=== PATIENT | male | born 1990 | race Caucasian/White ===

== ENCOUNTER 2025-02-11 09:48 | Emergency (ER) | payer SELFPAY ==
--- NOTE | ~2025-02-11 | XR_ITS ---
EXAMINATION: XR chest 2V DATE: 02/11/2025 10:58 INDICATION: 5 days of cough and fever TECHNIQUE: PA and lateral views of the chest were obtained. COMPARISON: None FINDINGS: The lungs are clear with no focal airspace opacities, pulmonary edema, pleural effusion or pneumothor ax. The cardiomediastinal silhouette is normal. Mild midthoracic spondylosis. IMPRESSION: 1. No acute cardiopulmonary disease. Reviewed, dictated and finalized at location A.
[2025-02-11 10:04] VITALS: BP 135/87; PULSE 95; RESP 17; TEMP 37.6; O2SAT 100
[2025-02-11 10:09] VITALS: O2SAT 100
[2025-02-11 10:11] VITALS: BP 135/87; PULSE 94; RESP 13; TEMP 37.6; O2SAT 100
[2025-02-11] MEDS: ACETAMINOPHEN 500 MG TABLET 1000 MG PO (10:28)
[2025-02-11 11:14] VITALS: BP 111/57; PULSE 88; RESP 16; O2SAT 98
[2025-02-11 11:17] LABS: Influenza A QL RT-PCR Negative (Negative); Influenza B QL RT-PCR Negative (Negative); RSV RNA, RT-PCR Negative (Negative); SARS-CoV-2 RNA PCR Negative (Negative)
--- NOTE | 2025-02-11 11:21 | ED_ITS ---
HPI - URI/Sore Throat General Chief Complaint: Upper Respiratory Infection Stated Complaint: cough and chills for 5 days Time Seen by Provider: 02/11/25 10:21 Source: patient Mode of arrival: ambulatory Limitations: no limitations History of Present Illness HPI Narrative: This is a 34-year-old male that presents to the emergency department for viral symptoms ongoing over the last 4 days. Reports chills, cough, diarrhea. Denies fever, abdominal pain, vomiting. Related Data Allergies Allergy/AdvReac Type Severity Reaction Status Date / Time No Known Allergies Allergy Verified 02/11/25 10:12 Review of Systems Review of Systems: All systems reviewed & are unremarkable except as noted in HPI and below PMFSH Past Medical History Medical History (Updated 02/11/25 @ 11:26 by Dianne Deal PA-C) No active medical problems Exam Narrative: GENERAL: Well-appearing, well-nourished, and in no acute distress. HEAD: Normocephalic, atraumatic. EYES: EOMI. ENT: Nares clear, no rhinorrhea or epistaxis. Mucous membranes moist. Oropharynx without tonsillar hypertrophy exudate or other lesions. Bilateral TMs pearly guerrero non-bulging NECK: Supple. No adenopathy or masses. CHEST: Clear to auscultation. No respiratory distress. No wheezes rales or rhonchi HEART: Regular rate and rhythm. No murmur heard. Normal peripheral pulses. ABDOMEN: Soft, nontender, nondistended, normal active bowel sounds. EXTREMITIES: Normal range of motion. No edema. SKIN: Warm, dry, no rash. NEURO: No focal deficits. Alert and oriented x3. PSYCH: Normal mood and affect Course Vital Signs Vital signs: Vital Signs Temperature 99.7 F H 02/11/25 10:04 Pulse Rate 95 02/11/25 10:04 Respiratory Rate 17 02/11/25 10:04 Blood Pressure 135/87 02/11/25 10:04 Pulse Oximetry 100 02/11/25 10:04 Oxygen Delivery Room Air 02/11/25 10:04 Temperature 99.7 F H 02/11/25 10:11 Pulse Rate 88 02/11/25 11:14 Respiratory Rate 16 02/11/25 11:14 Blood Pressure 111/57 L 02/11/25 11:14 Pulse Oximetry 98 02/11/25 11:14 Oxygen Delivery Room Air 02/11/25 10:09 MDM - URI/Sore Throat MDM Narrative Medical decision making narrative: This is a 34-year-old male that presents to the emergency department for viral symptoms. Ongoing over the last couple of days. Patient borderline febrile in the ER. Otherwise his vitals are stable. Influenza, RSV and COVID screens are negative. Chest x-ray without acute cardiopulmonary abnormality. Patient instructed on continued care a viral infection. He is to follow up with primary provider. He was given warnings to return to the ER Differential Diagnosis Differential diagnosis: Likely upper respiratory infection, otitis media, sinusitis, viral infection, influenza and other (COVID, pneumonia) Lab Data Attestation: I reviewed the patient's lab results. Labs: Lab Results 02/11/25 Range/Units 10:30 Influenza A (RT-PCR) Negative (Negative) Influenza B (RT-PCR) Negative (Negative) RSV (RT-PCR) Negative (Negative) SARS-CoV-2 RNA (RT-PCR) Negative (Negative) Imaging Data Radiologist's impression: ITS Impressions Chest X-Ray 02/11/25 11:02 IMPRESSION: 1. No acute cardiopulmonary disease. Critical Care Time Critical Care Time Critical Care Time: No Discharge Plan Discharge Clinical Impression: Acute viral syndrome Patient Disposition: Home Condition: Stable Instructions: Viral Syndrome (ED) Additional Instructions: Return to the emergency department if you experience fever >101, chest pain, shortness of breath, abdominal pain with nausea and vomiting, blood in the stool, or any other symptoms that are concerning to you. Rest. Remain well hydrated. Tylenol or ibuprofen as needed for pain or fever. Follow up with primary care doctor Patient Language: Turkish Follow-up/Referrals: PHYSICIAN,[employer] [Primary Care Provider] - Michael Petersen MD [Physician] -
[2025-02-11] MEDS: IBUPROFEN 600 MG TABLET PO (11:25)
[2025-02-11 11:26] VITALS: BP 123/79; PULSE 84; RESP 14; TEMP 37.7; O2SAT 98
== END 2025-02-11 11:37 | disposition home or self-care (01) ==
PROVIDERS: Emergency Provider Physician Assistant
DX: B34.9 Viral infection, unspecified (principal); Z20.822 Contact with and (suspected) exposure to COVID-19
CPT/HCPCS: 71046; 87637; 99283; A9270